=== PATIENT | female | born 1985 | race Caucasian/White ===

== ENCOUNTER → 2017-05-12 | Outpatient (CLI) | payer OTHER ==
--- NOTE | 2017-05-12 13:41 | REP ---
Bilateral knee series: 10 views. History: Injury in a fall. Findings: Five views of each knee demonstrate normal bones, joints, and soft tissues. No joint space narrowing, erosive change, fracture or other acute abnormality. Impression: Negative bilateral knee radiographs. Signed by Rafi Dodson MD 05/12/2017 02:10 P
== END ==
LOC: M LRY 13:02
PROVIDERS: ATTEND Physician Assistant
DX: M25.562 Pain in left knee (principal)

== ENCOUNTER → 2017-10-11 | Outpatient (CLI) | payer OTHER | LOC: M LRY 17:52 | DX: R07.81 Pleurodynia (principal) | CPT/HCPCS: 71111 ==

== ENCOUNTER → 2018-10-13 | Outpatient (CLI) | payer BC ==
[~2018-10-13] MED LIST: GABA-843 PO; NAPR-885 PO
[2018-10-13 13:50] LABS: BASO # 0.1 10^3/uL (0.0-0.2); BASO % 0.9 % (0.0-1.0); EOS # 0.4 10^3/uL (0.0-0.50); EOS % 6.2 % (0.0-3.0); HEMATOCRIT 44.2 % (36.0-47.0); HEMOGLOBIN 15.1 g/dl (12.0-15.5); LYMPH # 2.4 10^3/uL (1.5-4.5); LYMPH % 34.2 % (24.0-44.0); MEAN CORPUSCULAR HEMOGLOBIN 31.5 pg (27.0-33.0); MEAN CORPUSCULAR HGB CONC 34.2 g/dl (32.0-36.5); MEAN CORPUSCULAR VOLUME 92.1 fl (80.0-96.0); MONO # 0.4 10^3/uL (0.0-0.8); MONO % 6.1 % (0.0-5.0); NEUTROPHILS # 3.6 10^3/uL (1.8-7.7); NEUTROPHILS % 52.3 % (36.0-66.0); PLATELET COUNT, AUTOMATED 341 10^3/uL (150-450); WHITE BLOOD COUNT 6.9 10^3/uL (4.0-10.0)
[2018-10-13 14:11] LABS: HEMOGLOBIN A1c 5.2 %
[2018-10-13 15:17] LABS: ALBUMIN 4.4 GM/DL (3.2-5.2); ALT/SGPT 19 U/L (12-78); BILIRUBIN,TOTAL 0.3 MG/DL (0.2-1.0); BLOOD UREA NITROGEN 9 MG/DL (7-18); CARBON DIOXIDE LEVEL 25 MEQ/L (21-32); CHLORIDE LEVEL 107 MEQ/L (98-107); CHOLESTEROL LEVEL 220 MG/DL (<200); CHOLESTEROL RISK RATIO 4.074 (<5); FREE T4 1.13 NG/DL (0.76-1.46); GLOMERULAR FILTRATION RATE > 60.0 (>60); GLUCOSE, FASTING 101 MG/DL (70-100); HDL CHOLESTEROL 54 MG/DL (>40); LDL CHOLESTEROL 142 MG/DL (<100); NON-HDL-C 166 MG/DL; POTASSIUM SERUM 4.2 MEQ/L (3.5-5.1); SODIUM LEVEL 140 MEQ/L (136-145); TOTAL PROTEIN 7.3 GM/DL (6.4-8.2); TRIGLYCERIDES LEVEL 118 MG/DL (<150)
[2018-10-13 16:02] LABS: LUTEINIZING HORMONE 11.7 mIU/mL
[2018-10-13 16:03] LABS: FOLLICLE STIMULATING HORMONE 6.9 mIU/mL
[2018-10-20 00:06] LABS: TESTOSTERONE FREE (DIRECT) 2.5 pg/mL (0.0-4.2)
== END ==
LOC: M SMT 10:20
PROVIDERS: ATTEND Physician Assistant
DX: N94.6 Dysmenorrhea, unspecified (principal); Z13.29 Encounter for screening for other suspected endocrine disorder

== ENCOUNTER 2018-10-16 05:56 | Day surgery (SDC) | payer OTHER ==
[~2018-10-16] VITALS: Ht 167.6 cm; Wt 88.0 kg
[2018-10-16] MEDS ORDERED: LR 1,000 ML IV ONE (06:00)
[2018-10-16 06:38] LABS: URINE PREG TEST NEGATIVE (NEGATIVE)
[2018-10-16] MEDS ORDERED: BUPIVACAINE HCL 0.5% 30 ML VIAL As Ordered ONE (06:38)
[2018-10-16] MEDS ORDERED: fentaNYL 100 MCG/2 ML INJECTION (J3010) As Ordered ONE (07:17)
[2018-10-16] MEDS ORDERED: LIDOCAINE 2% INJ 100 MG/5 ML SDV (FOR ANES.) As Ordered ONE (07:17)
[2018-10-16] MEDS ORDERED: PROPOFOL 200 MG/20 ML VIAL As Ordered ONE (07:17)
[2018-10-16] MEDS ORDERED: MIDAZOLAM INJ 2 MG/2 ML VIAL (J2250) As Ordered ONE (07:17)
[2018-10-16] MEDS ORDERED: HYDROmorphone HCL 2 MG/ML 1ML VIAL (J1170) As Ordered ONE (07:56)
[2018-10-16] MEDS ORDERED: ONDANSETRON 4MG/2ML VIAL (J2405) As Ordered ONE ×2 (07:57→09:14)
[2018-10-16] MEDS ORDERED: LR 1,000 ML IV SCH ×2 (09:30)
[2018-10-16] MEDS ORDERED: fentaNYL 100 MCG/2 ML INJECTION (J3010) IV PRN (09:30)
[2018-10-16] MEDS ORDERED: ONDANSETRON 4MG/2ML VIAL (J2405) IV PRN (09:30)
[2018-10-16] MEDS: HYDROMORPHONE HCL 0.5 MG/ 0.5 ML SYRINGE (J1170 PER 1) IV PRN ×2 (09:42→09:46)
[2018-10-16] MEDS ORDERED: METOCLOPRAMIDE INJ 10MG/2ML VIAL (J2765) As Ordered ONE (10:08)
[2018-10-16] MEDS ORDERED: METOCLOPRAMIDE INJ 10MG/2ML VIAL (J2765) IV PRN (10:30)
[2018-10-16 10:50] VITALS: BP 129/61
--- NOTE | 2018-10-16 11:06 | RO ---
DATE OF PROCEDURE: 10/16/2018 PREOPERATIVE DIAGNOSIS: 1. Left knee lateral patellar facet overload syndrome. 2. Left knee iliotibial (IT) band friction syndrome. POSTOPERATIVE DIAGNOSES: 1. Left knee lateral patellar facet overload syndrome. 2. Left knee iliotibial (IT) band friction syndrome. PROCEDURE PERFORMED: 1. Left knee arthroscopy with chondroplasty. 2. Left knee arthroscopic lateral release. 3. Open iliotibial band release. SURGEON: Dr. Enrrique Eddy. IRRIGATOR HEAD: Chacorta Colon PA-C ANESTHESIA: General. IV FLUIDS: Lactated Ringer's. ESTIMATED BLOOD LOSS: 1 mL. CLOSURE: Nylon. DESCRIPTION OF PROCEDURE: Patient identified in preoperative holding area. Exam of the left knee again confirmed tenderness of the lateral patellar facets and at the IT band. The left knee was marked. She was brought to the operating room, placed supine on a well-padded operating room (OR) table. She received appropriate IV antibiotics within 1 hour of incision. After induction of general anesthesia a well-padded tourniquet was applied on the left thigh. Exam under anesthesia revealed range of motion from 0 to 135 degrees, stable to varus and valgus stress, grade 1 A Lissy. She had 1-1/2 quadrants of lateral patellar mobility. She had lateral patellar tilt. I was unable to milo to neutral. Stable to varus and valgus stress. The left leg was then prepped and draped in normal sterile fashion with Chloraprep. Prior to incision time-out performed per hospital protocol. The left leg was exsanguinated using an Esmarch bandage, the tourniquet inflated to 275 mmHg. The knee was insufflated with lactated Ringer's. Standard anterolateral portal made with an 11-blade. 30 degrees arthroscope introduced into the joint atraumatically. Diagnostic arthroscopy revealed there were no loose bodies. Overall the patellofemoral joint was in great condition. Two small very thin flaps of articular cartilage off the trochlea. There was arthroscopic evidence of lateral patellar tilt. It was quite difficult to place arthroscope through the lateral portion of the patellofemoral joint. 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 This did not appear to have advanced. There was a small area chondromalacia in the lateral tibial plateau. No lateral meniscus tears. The anterior cruciate ligament (ACL) appeared intact and unremarkable. The leg was brought to the [id number] position where there was no chondromalacia and no lateral meniscus tears. Anterior medial portal was created under direct visualization. The shaver was used to perform a chondroplasty of the trochlea. Arthroscopy portals were then switched and the hooked cautery was placed through the medial portal where I proceeded with the arthroscopic lateral release. Care was taken not to extend this too proximal to avoid damage to the vastus lateralis. The release was carried out distally just proximal to lateral portal. After completion of the arthroscopic lateral release, I was then able to place the arthroscope through the lateral portion of the patellofemoral joint and much easier showing that contact forces have been decreased. The knee was irrigated and drained. I then proceeded with open lateral IT band lengthening. A 3 cm incision made with the 15 blade, centered over the lateral condyle. Metzenbaum scissors used to dissect down to the IT band. Fat and connective tissue were cleared off the IT band. The posterior one-half of the IT band was identified. A jose maria-shaped ellipse was marked with a cautery immediately proximal to the lateral epicondyle and again in the posterior one-half of the IT band. Fresh 15 blade was used to sharply excise that portion of the IT band. The knee was brought through flexion/extension. There was no rubbing over the lateral epicondyle. There was minimal bursal tissue deep to that. I elected to not perform a bursectomy to avoid excess bleeding and scarring. Prior to injection of local anesthetic, I extensively irrigated that incision. I then injected 10 mL of 0.5% Marcaine without epinephrine into the IT band and bursa. The incision was closed with #2-0 Vicryl running #3-0 nylon. Portals closed with #3-0 nylon. 20 additional mL of 0.5% Marcaine without epinephrine were injected into the other portals and at the skin for the lateral release. Tourniquet was let down with excellent reperfusion. Bulky sterile dressing was applied. All counts correct times two. Complications: None. She was extubated, transferred to postanesthesia care unit (PACU) in stable condition. DISPOSITION: The patient will be partial weightbearing on the left lower extremity with crutches. The patient has an intolerance to aspirin bothering her stomach, so we talked about deep venous thrombosis (DVT) prophylaxis consisting of frequent mobilization. We discussed the signs and symptoms of DVT and pulmonary embolus (PE). She knows to go the emergency room, call [phone] of any those develop.
== END 2018-10-16 11:22 | disposition home or self-care (01) ==
LOC: M SDC 05:56
PROVIDERS: ATTEND Orthopaedic Surgery
DX: M22.2X2 Patellofemoral disorders, left knee (principal); M76.32 Iliotibial band syndrome, left leg; M94.262 Chondromalacia, left knee; R06.02 Shortness of breath; M54.5 Low back pain; R51 Headache; R06.83 Snoring; J35.1 Hypertrophy of tonsils; Z88.6 Allergy status to analgesic agent; Z87.891 Personal history of nicotine dependence
CPT/HCPCS: 27305; 29873; 84703; J0690; J1170; J2250; J2405; J2765; J3010

== ENCOUNTER → 2018-11-10 | Outpatient (REF) | payer BC | LOC: M LAB REF 15:47 | PROVIDERS: ATTEND Family Medicine | DX: D23.5 Other benign neoplasm of skin of trunk (principal) ==

== ENCOUNTER → 2019-01-03 | Outpatient (CLI) | payer BC ==
[2019-01-03 19:11] LABS: BASO # 0.1 10^3/uL (0.0-0.2); BASO % 0.6 % (0.0-1.0); EOS # 0.2 10^3/uL (0.0-0.50); EOS % 1.9 % (0.0-3.0); HEMATOCRIT 41.3 % (36.0-47.0); HEMOGLOBIN 13.7 g/dl (12.0-15.5); LYMPH # 2.6 10^3/uL (1.5-4.5); LYMPH % 32.1 % (24.0-44.0); MEAN CORPUSCULAR HEMOGLOBIN 30.4 pg (27.0-33.0); MEAN CORPUSCULAR HGB CONC 33.2 g/dl (32.0-36.5); MEAN CORPUSCULAR VOLUME 91.8 fl (80.0-96.0); MONO # 0.6 10^3/uL (0.0-0.8); MONO % 6.9 % (0.0-5.0); NEUTROPHILS # 4.6 10^3/uL (1.8-7.7); NEUTROPHILS % 58.4 % (36.0-66.0); PLATELET COUNT, AUTOMATED 355 10^3/uL (150-450)
[2019-01-03 19:14] LABS: BLOOD UREA NITROGEN 11 MG/DL (7-18); CALCIUM LEVEL 8.8 MG/DL (8.5-10.1); CARBON DIOXIDE LEVEL 24 MEQ/L (21-32); CHLORIDE LEVEL 111 MEQ/L (98-107); CREATININE FOR GFR 0.64 MG/DL (0.55-1.30); GLOMERULAR FILTRATION RATE > 60.0 (>60); GLUCOSE, FASTING 79 MG/DL (70-100); POTASSIUM SERUM 3.9 MEQ/L (3.5-5.1); SODIUM LEVEL 141 MEQ/L (136-145)
== END ==
LOC: M WUC 16:38
PROVIDERS: ATTEND Family Medicine
DX: K57.33 Diverticulitis of large intestine without perforation or abscess with bleeding (principal)

== ENCOUNTER → 2019-07-02 | Outpatient (CLI) | payer BC ==
[~2019-07-02] MED LIST changes: +ISOVUE-300 61% 100ML VIAL (Q9967) As Ordered ONE; +ISOVUE-370 76% 100ML VIAL (Q9967) As Ordered ONE
--- NOTE | 2019-07-02 13:34 | REP ---
HYSTEROSALPINGOGRAPHY: Four views. HISTORY: Secondary infertility. TECHNIQUE: Fluoroscopic spot filming and fluoroscopy guidance is provided. The endometrium is cannulated and contrast was injected by the referring handkerchief sample clerk. 0.5 minutes of fluoroscopy time was utilized. FINDINGS: A sequence of four fluoroscopic spot radiographs document filling and mild distension of the endometrial cavity. The isthmic segment of the right fallopian tube is opacified but no ampullary segment could be visualized. No spillage was seen. On the left the fallopian tube was not visualized despite painful distension of the endometrium . 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 Electronically Signed by Rafi Dodson MD 07/02/2019 01:57 P
== END ==
LOC: M RADPRO 11:34
PROVIDERS: ATTEND Specialist
DX: N97.1 Female infertility of tubal origin (principal)
CPT/HCPCS: 58340; 74740; Q9967

== ENCOUNTER 2019-07-25 10:40 | Day surgery (SDC) | payer BC ==
[~2019-07-25] VITALS: Ht 167.6 cm; Wt 79.8 kg
[~2019-07-25 10:40] MED LIST changes: +GABA-1171 PO; -ISOVUE-300 61% 100ML VIAL (Q9967) As Ordered ONE; -ISOVUE-370 76% 100ML VIAL (Q9967) As Ordered ONE; +LIDO1.1P TOP; +LR 1,000 ML IV ONE
[2019-07-25] MEDS ORDERED: PROPOFOL 200 MG/20 ML VIAL As Ordered ONE (10:55)
[2019-07-25] MEDS ORDERED: LIDOCAINE 2% INJ 100 MG/5 ML SDV (FOR ANES.) As Ordered ONE (10:55)
[2019-07-25] MEDS ORDERED: ROCURONIUM BROMIDE 50 MG/5 ML VIAL As Ordered ONE (10:55)
[2019-07-25] MEDS ORDERED: MIDAZOLAM INJ 2 MG/2 ML VIAL (J2250) As Ordered ONE (10:55)
[2019-07-25] MEDS ORDERED: fentaNYL 100 MCG/2 ML INJECTION (J3010) As Ordered ONE ×3 (10:56→13:19)
[2019-07-25 11:14] LABS: HEMATOCRIT 43.7 % (36.0-47.0); HEMOGLOBIN 14.4 g/dl (12.0-15.5); MEAN CORPUSCULAR HEMOGLOBIN 31.6 pg (27.0-33.0); MEAN CORPUSCULAR VOLUME 95.8 fl (80.0-96.0); PLATELET COUNT, AUTOMATED 305 10^3/uL (150-450); RED BLOOD COUNT 4.56 10^6/uL (4.00-5.40); WHITE BLOOD COUNT 6.1 10^3/uL (4.0-10.0)
[2019-07-25] MEDS ORDERED: BUPIVACAINE HCL 0.25% 10 ML VIAL As Ordered ONE (11:34)
[2019-07-25] MEDS ORDERED: BUPIVACAINE HCL 0.25% 30 ML VIAL As Ordered ONE (11:34)
[2019-07-25] MEDS ORDERED: METHYLENE BLUE 0.5% (5MG/ML) 10 ML AMP (PROVAYBLUE)(Q9968 PER 1MG) As Ordered ONE ×2 (11:34→12:36)
[2019-07-25] MEDS ORDERED: dexameTHASONE 4 MG/ML 1ML VIAL (J1100) As Ordered ONE (12:13)
[2019-07-25] MEDS ORDERED: METOCLOPRAMIDE INJ 10MG/2ML VIAL (J2765) As Ordered ONE (12:13)
[2019-07-25] MEDS ORDERED: KETOROLAC 60 MG/2 ML VIAL (J1885) As Ordered ONE (12:13)
[2019-07-25] MEDS ORDERED: ONDANSETRON 4MG/2ML VIAL (J2405) As Ordered ONE (12:13)
[2019-07-25] MEDS ORDERED: SUGAMMADEX SODIUM 500 MG/5 ML VIAL (BRIDION) As Ordered ONE (12:42)
[2019-07-25] MEDS: fentaNYL 100 MCG/2 ML INJECTION (J3010) IV PRN ×4 (13:24→14:00)
[2019-07-25] MEDS ORDERED: ONDANSETRON 4MG/2ML VIAL (J2405) IV PRN (13:30)
[2019-07-25] MEDS ORDERED: LR 1,000 ML IV SCH ×2 (13:30)
[2019-07-25] MEDS ORDERED: oxyCODONE 5MG TAB As Ordered ONE (13:43)
[2019-07-25] MEDS ORDERED: oxyCODONE 5MG TAB PO ONE ×2 (13:45→15:00)
--- NOTE | 2019-07-25 13:50 | RO ---
DATE OF PROCEDURE: 07/25/2019 PREPROCEDURE DIAGNOSIS: Pelvic pain, endometriosis. POSTPROCEDURE DIAGNOSIS: Pelvic pain, endometriosis. PROCEDURE: Diagnostic laparoscopy, chromotubation. SURGEON: Dr. Francisco Villanueva [employer] AMBASS[employer]OR: ANESTHESIA: General endotracheal. ESTIMATED BLOOD LOSS: 10 mL. URINE OUTPUT: 100 mL. FINDINGS: Normal fallopian tubes, uterus and ovaries. Stage I endometriosis with a single endometriosis implant in the left posterior cul-de-sac near the uterosacral ligament close to the ureter. DESCRIPTION OF PROCEDURE: The patient was taken to the operating room where general endotracheal anesthesia was induced. She was prepped and draped in sterile fashion in the dorsal lithotomy position. A ZUMI uterine manipulator was placed. Calvin catheter was placed. Periumbilical incision was made with the scalpel. A Veress needle was placed through this incision while tenting up on the skin of the abdomen. Intra-abdominal location of the Veress was assessed using saline filled syringe. A pneumoperitoneum was created. The Veress needle was removed. A 5 mm trocar using Visiport was inserted through this incision. A separate 5 mm suprapubic port was placed on the left under direct visualization. The patient placed in Trendelenburg position and grasping instrument was used to survey pelvic structures. The single endometriosis implant was noted to be very minimal and too close to the ureter to excise successfully. Both fallopian tubes appeared normal. Initially, there was some fallopian tube spasm that made it difficult to fill the tubes with dye, however, both tubes did fill successfully with dye ultimately. The pneumoperitoneum was released. All instruments were removed. Sponge, instrument and needle counts were correct. The patient was extubated and went to the recovery room in stable condition.
[2019-07-25] MEDS ORDERED: OXYC-517 PO (14:31)
[2019-07-25 15:10] VITALS: BP 115/60
== END 2019-07-25 15:18 | disposition home or self-care (01) ==
LOC: M SDC 10:40
PROVIDERS: ATTEND Specialist
DX: R10.2 Pelvic and perineal pain (principal); N80.9 Endometriosis, unspecified; K57.92 Diverticulitis of intestine, part unspecified, without perforation or abscess without bleeding; M25.569 Pain in unspecified knee; F17.210 Nicotine dependence, cigarettes, uncomplicated; Z88.6 Allergy status to analgesic agent; Z79.899 Other long term (current) drug therapy; Z79.1 Long term (current) use of non-steroidal anti-inflammatories (NSAID)
CPT/HCPCS: 36415; 49320; 58350; 81025; 85027; J1100; J1885; J2250; J2405; J2765; J3010; Q9968

== ENCOUNTER → 2020-09-23 | Outpatient (REF) | payer BC ==
[~2020-09-23] MED LIST changes: -LR 1,000 ML IV ONE; +OXYC-517 PO
== END ==
LOC: M LAB REF 18:23
PROVIDERS: ATTEND Physician Assistant Medical
DX: R50.9 Fever, unspecified (principal); R68.89 Other general symptoms and signs

== ENCOUNTER → 2022-09-01 | Outpatient (CLI) | payer OTHER ==
[~2022-09-01] MED LIST changes: +GABA-282 PO; -GABA-843 PO
[2022-09-01 14:21] LABS: BASO % 0.5 % (0.0-1.0); EOS # 0.1 10^3/uL (0.0-0.5); EOS % 1.8 % (0.0-3.0); HEMATOCRIT 45.3 % (36.0-47.0); LYMPH # 1.8 10^3/uL (1.5-5.0); LYMPH % 23.1 % (24.0-44.0); MEAN CORPUSCULAR HEMOGLOBIN 32.5 pg (27.0-33.0); MEAN CORPUSCULAR HGB CONC 33.1 g/dl (32.0-36.5); MEAN CORPUSCULAR VOLUME 98.3 fl (80.0-96.0); MONO # 0.6 10^3/uL (0.0-0.8); MONO % 8.1 % (2.0-8.0); NEUTROPHILS # 5.2 10^3/uL (1.5-8.5); NEUTROPHILS % 66.2 % (36.0-66.0); PLATELET COUNT, AUTOMATED 297 10^3/uL (150-450); RED BLOOD COUNT 4.61 10^6/uL (4.00-5.40); WHITE BLOOD COUNT 7.9 10^3/uL (4.0-10.0)
[2022-09-01 15:13] LABS: HCG, SERUM QUANTITATIVE 45.6 MIU/ML (<4.2)
[2022-09-01 15:17] LABS: PROGESTERONE 6.48 NG/ML
== END ==
LOC: M PLALAB 10:32
PROVIDERS: ATTEND Family Medicine
DX: O03.39 Incomplete spontaneous abortion with other complications (principal)

== ENCOUNTER → 2022-09-02 | Outpatient (CLI) | payer OTHER | LOC: M RAD 08:16 | PROVIDERS: ATTEND Family Medicine | DX: O03.39 Incomplete spontaneous abortion with other complications (principal) ==

== ENCOUNTER → 2022-09-08 | Outpatient (CLI) | payer OTHER | LOC: M PLALAB 13:04 | PROVIDERS: ATTEND Family Medicine | DX: O03.39 Incomplete spontaneous abortion with other complications (principal) ==

== ENCOUNTER → 2022-10-07 | Outpatient (REF) | payer OTHER | LOC: M LAB REF 17:22 | PROVIDERS: ATTEND Physician Assistant | DX: J02.9 Acute pharyngitis, unspecified (principal) ==

== ENCOUNTER → 2025-01-15 | Outpatient (CLI) | payer OTHER ==
[~2025-01-15] MED LIST changes: +GABA-1172 PO; -GABA-282 PO
[2025-01-15 13:56] LABS: BASO # 0.1 10^3/uL (0.0-0.2); BASO % 0.5 % (0.0-1.0); EOS # 0.2 10^3/uL (0.0-0.5); EOS % 1.7 % (0.0-3.0); HEMATOCRIT 42.2 % (36.0-47.0); HEMOGLOBIN 14.3 g/dl (12.0-15.5); LYMPH # 2.3 10^3/uL (1.5-5.0); LYMPH % 21.3 % (24.0-44.0); MEAN CORPUSCULAR HEMOGLOBIN 33.3 pg (27.0-33.0); MEAN CORPUSCULAR HGB CONC 33.9 g/dl (32.0-36.5); MEAN CORPUSCULAR VOLUME 98.4 fl (80.0-96.0); MONO # 0.6 10^3/uL (0.0-0.8); MONO % 5.5 % (2.0-8.0); NEUTROPHILS # 7.7 10^3/uL (1.5-8.5); NEUTROPHILS % 70.7 % (36.0-66.0); PLATELET COUNT, AUTOMATED 288 10^3/uL (150-450); RED BLOOD COUNT 4.29 10^6/uL (4.00-5.40); WHITE BLOOD COUNT 10.9 10^3/uL (4.0-10.0)
[2025-01-15 14:21] LABS: THYROID STIMULATING HORMONE 2.095 uIU/ML (0.55-4.78)
[2025-01-15 14:22] LABS: FOLLICLE STIMULATING HORMONE 7.8 mIU/ML
[2025-01-15 14:23] LABS: FERRITIN 37.1 NG/ML (7.3-270.7); LUTEINIZING HORMONE 5.1 mIU/ML; TOTAL IRON BINDING CAPACITY 296 UG/DL (250-425)
[2025-01-15 14:24] LABS: ESTRADIOL 113.6 PG/ML
[2025-01-15 14:25] LABS: ALBUMIN 3.6 G/DL (3.2-5.2); ALKALINE PHOSPHATASE 71 U/L (35-104); ALT/SGPT 19 U/L (7.0-40); AST/SGOT 13 U/L (<34); BILIRUBIN,TOTAL 0.6 MG/DL (0.3-1.2); BLOOD UREA NITROGEN 11 MG/DL (9-23); CARBON DIOXIDE LEVEL 25 MMOL/L (20-31); CHLORIDE LEVEL 111 MMOL/L (98-107); CHOLESTEROL LEVEL 172 MG/DL (<200); CHOLESTEROL RISK RATIO 2.15 (<5); CREATININE FOR GFR 0.74 MG/DL (0.55-1.30); FREE T4 1.04 NG/DL (0.89-1.76); GLOMERULAR FILTRATION RATE > 90.0 (>60); GLUCOSE, FASTING 91 MG/DL (60-100); HDL CHOLESTEROL 79.8 MG/DL (>40); IRON (FE) 169 UG/DL (50-170); LDL CHOLESTEROL 79.8 MG/DL (<100); NON-HDL-C 92.2 MG/DL; PERCENT SATURATION 57.1 % (13.2-45.0); POTASSIUM SERUM 4.1 MMOL/L (3.5-5.1); SODIUM LEVEL 143 MMOL/L (136-145); TOTAL PROTEIN 6.4 G/DL (5.7-8.2); TRIGLYCERIDES LEVEL 62 MG/DL (<150)
[2025-01-15 14:28] LABS: HEMOGLOBIN A1c 4.8 % (4.0-6.0)
== END ==
LOC: M WUC 09:20
PROVIDERS: ATTEND Physician Assistant
DX: Z13.29 Encounter for screening for other suspected endocrine disorder (principal); Z13.220 Encounter for screening for lipoid disorders; N80.00 Endometriosis of the uterus, unspecified